=== PATIENT | male | born 1955 | race Caucasian/White ===

== ENCOUNTER 2020-03-04 10:04 | Emergency (ER) | payer MEDICARE ==
[~2020-03-04] VITALS: Ht 170.2 cm; Wt 102.1 kg
[2020-03-04] MEDS ORDERED: HYDR12.55 PO (10:16)
[2020-03-04] MEDS ORDERED: VERA240T3 PO (10:16)
[2020-03-04] MEDS ORDERED: LOSA100T5 PO (10:16)
[2020-03-04] MEDS ORDERED: LEVO25TA5 PO (10:16)
--- NOTE | 2020-03-04 11:59 | REPVR ---
PROCEDURE INFORMATION: Exam: CT Abdomen And Pelvis Without Contrast Exam date and time: 03/04/2020 11:38 AM Age: 64 years old Clinical indication: Abdominal pain; Additional info: R flank pain with HX of kidney stones TECHNIQUE: Imaging protocol: Computed tomography of the abdomen and pelvis without contrast. Radiation optimization: All CT scans at this facility use at least one of these dose optimization techniques: automated exposure control; mA and/or kV adjustment per patient size (includes targeted exams where dose is matched to clinical indication); or iterative reconstruction. COMPARISON: No relevant prior studies available. FINDINGS: Lungs: Incompletely seen atelectasis scarring is noted within the right lower lobe. Heart: There is suspected anterior pericardial thickening . Liver: Liver is mild to moderately fatty enlarged at 215 mm. Gallbladder and bile ducts: Normal. No calcified stones. No ductal dilation. Pancreas: Normal. No ductal dilation. Spleen: Normal. No splenomegaly. Adrenals: There is a calcification within the left adrenal gland. Kidneys and ureters: There are bilateral renal cysts measuring up to 36 mm. There is the faint 2-3 mm upper pole renal stone on the right.. There is no hydronephrosis. Stomach and bowel: There is likely ingested pill or tablet within the small bowel. Appendix: The appendix is seen appears normal. Intraperitoneal space: Unremarkable. No free air. No significant fluid collection. Vasculature: There is calcification of a nondilated aorta. Lymph nodes: Unremarkable. No enlarged lymph nodes. Urinary bladder: Unremarkable as visualized. Reproductive: Unremarkable as visualized. 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 Less severe arthritic changes noted throughout the rest the lumbar spine. Soft tissues: There is a fat containing periumbilical hernia. IMPRESSION: 1. Small nonobstructing right upper pole renal stone.. No hydronephrosis. 2. Bosniak class 1 bilateral renal cysts. No further workup recommended. 3. Arthritic changes listhesis the spine. 4. Large fatty liver. Electronically signed by: Yves Bender On 03/04/2020 11:59:05 AM
[2020-03-04] MEDS ORDERED: KEFL500C17 PO (12:09)
[2020-03-04 12:48] VITALS: BP 150/84
== END 2020-03-04 12:51 | disposition home or self-care (01) ==
LOC: M ED 10:04
DX: N39.0 Urinary tract infection, site not specified (principal); N20.0 Calculus of kidney; K76.0 Fatty (change of) liver, not elsewhere classified; M54.5 Low back pain; G89.29 Other chronic pain; I10 Essential (primary) hypertension; E78.5 Hyperlipidemia, unspecified; Z87.442 Personal history of urinary calculi

== ENCOUNTER 2022-11-12 09:44 | Emergency (ER) | payer MEDICARE ==
[~2022-11-12] VITALS: Ht 170.2 cm; Wt 94.6 kg
[~2022-11-12 09:44] MED LIST: HYDR12.55 PO; KEFL500C17 PO; LEVO25TA5 PO; LOSA100T5 PO; VERA240T64 PO
[2022-11-12] MEDS ORDERED: ASPI81CH33 PO (10:26)
[2022-11-12 11:29] LABS: APPEARANCE, URINE HAZY (CLEAR); BACTERIA, URINE AUTO NEGATIVE (NEGATIVE); BILIRUBIN, URINE AUTO NEGATIVE (NEGATIVE); BLOOD, URINE BLOOD NEGATIVE (NEGATIVE); COLOR, URINE AMBER (YELLOW); GLUCOSE, URINE (UA) AUTO NEGATIVE (NEGATIVE); GRANULAR CAST, URINE AUTO 3 /LPF; KETONE, URINE AUTO NEGATIVE (NEGATIVE); LEUKOCYTE ESTERASE, URINE AUTO NEGATIVE (NEGATIVE); MUCUS, URINE SMALL (NEGATIVE); NITRITE, URINE AUTO NEGATIVE (NEGATIVE); PROTEIN, URINE AUTO 1+ mg/dL (NEGATIVE); RBC, URINE AUTO 1 /HPF (0-3); SQUAMOUS EPITHELIAL CELL UR AU 0 /HPF (0-6); WBC, URINE AUTO 3 /HPF (0-3)
[2022-11-12 11:41] LABS: BASO % 0.8 % (0.0-1.0); EOS # 0.1 10^3/uL (0.0-0.5); HEMATOCRIT 41.3 % (42.0-52.0); HEMOGLOBIN 14.4 g/dl (13.5-17.5); LYMPH # 0.8 10^3/uL (1.5-5.0); LYMPH % 16.2 % (24.0-44.0); MEAN CORPUSCULAR HEMOGLOBIN 31.4 pg (27.0-33.0); MEAN CORPUSCULAR HGB CONC 34.9 g/dl (32.0-36.5); MEAN CORPUSCULAR VOLUME 90.2 fl (80.0-96.0); MONO # 0.4 10^3/uL (0.0-0.8); MONO % 8.4 % (2.0-8.0); NEUTROPHILS # 3.8 10^3/uL (1.5-8.5); NEUTROPHILS % 73.2 % (36.0-66.0); PLATELET COUNT, AUTOMATED 215 10^3/uL (150-450); RED BLOOD COUNT 4.58 10^6/uL (4.30-6.10); WHITE BLOOD COUNT 5.1 10^3/uL (4.0-10.0)
[2022-11-12] MEDS ORDERED: DOXY-443 PO (12:37)
[2022-11-12 12:44] LABS: BLOOD UREA NITROGEN 26 MG/DL (9-23); CALCIUM LEVEL 9.3 MG/DL (8.3-10.6); CARBON DIOXIDE LEVEL 30 MMOL/L (20-31); CHLORIDE LEVEL 98 MMOL/L (98-107); CREATININE FOR GFR 1.08 MG/DL (0.70-1.30); GLOMERULAR FILTRATION RATE > 60.0 (>49); GLUCOSE, FASTING 164 MG/DL (74-106); POTASSIUM SERUM 3.1 MMOL/L (3.5-5.1); SODIUM LEVEL 134 MMOL/L (136-145)
[2022-11-12 12:49] VITALS: BP 126/65; TEMP 96.5; O2SAT 98
== END 2022-11-12 13:47 | disposition home or self-care (01) ==
LOC: M ED 09:44
DX: L03.311 Cellulitis of abdominal wall (principal); R35.0 Frequency of micturition; Z79.899 Other long term (current) drug therapy; Z79.82 Long term (current) use of aspirin